=== PATIENT | male | born 1950 | race Caucasian/White ===

== ENCOUNTER 2017-08-22 12:15 | Emergency (ER) | payer MEDICARE, OTHER ==
[~2017-08-22] VITALS: Ht 167.6 cm; Wt 76.2 kg
[~2017-08-22 12:15] MED LIST: ASPI-496 PO; ASPI-621 PO; ATOR-2 PO; CARV3.1212 PO; CLOP75TA52 PO; DIAZ10TA4 PO; HYDR-3241 PO; HYDR1TAB12 PO; INSU100I18 SQ; INSU100V13 SQ; INSU100V8 SQ; KETO30VI27 IVPush; LISI-167 PO; METF500T PO; METO25TA35 PO; MORP2SYR3 IVPush; NITR0.4T SL; NITR0.4T28 SL; ONDA4SOL2 IVPush; TEMA15CA6 PO; TICA90TA PO
[2017-08-22 12:58] LABS: BASOPHILS # (AUTO) 0.06 x10^3/uL (0-0.1); BASOPHILS % (AUTO) 1 % (0-1); EOSINOPHILS # (AUTO) 0.15 x10^3/uL (0-0.4); EOSINOPHILS % (AUTO) 2 % (1-7); LYMPHOCYTES # (AUTO) 1.43 x10^3/uL (1-3.4); LYMPHOCYTES % (AUTO) 14 % (22-44); MD NO; MEAN CORPUSCULAR HEMOGLOBIN 32.3 pg (27.5-34.5); MEAN CORPUSCULAR HGB CONC 33.2 g/dL (33.2-36.2); MEAN CORPUSCULAR VOLUME 97.2 fL (81-97); MEAN PLATELET VOLUME 8.4 fL (7.4-10.4); MONOCYTES # (AUTO) 0.84 x10^3/uL (0.2-0.8); MONOCYTES % (AUTO) 8 % (2-9); NEUTROPHILS # (AUTO) 7.67 x10^3/uL (1.8-6.8); NEUTROPHILS % (AUTO) 76 % (42-75); PLATELET COUNT 331 x10^3/uL (130-400); RED BLOOD COUNT 2.86 x10^6/uL (4.38-5.82); RED CELL DISTRIBUTION WIDTH 14.4 % (9.4-14.8)
[2017-08-22 13:04] LABS: ALBUMIN 2.6 g/dL (3.4-5.0); ANION GAP 6 mmol/L (5-15); CHLORIDE 107 mmol/L (98-107); CREATININE 1.19 mg/dL (0.7-1.3)
[2017-08-22] MEDS ORDERED: HYDROcodone/APAP 10/325 MG TABLET PO ONE (13:30)
[2017-08-22] MEDS ORDERED: ALBUTEROL/IPRATROPIUM 2.5MG/0.5MG, 3 ML NPPB ONE (14:00)
[2017-08-22 14:09] LABS: CULTURE INDICATED? YES; MICROSCOPIC INDICATED
[2017-08-22] MEDS ORDERED: ALBUTEROL/IPRATROPIUM 2.5MG/0.5MG, 3 ML ONE (14:26)
[2017-08-22 15:28] VITALS: BP 120/70
== END 2017-08-22 15:32 | disposition home or self-care (01) ==
LOC: ED 15:26
DX: N49.2 Inflammatory disorders of scrotum (principal); N43.3 Hydrocele, unspecified; E11.9 Type 2 diabetes mellitus without complications; I25.2 Old myocardial infarction; Z87.891 Personal history of nicotine dependence
CPT/HCPCS: 36415; 71045; 76870; 80048; 81001; 82040; 85025; 87086; 93975; 94640; 99285; J7512; J7620

== ENCOUNTER 2018-03-09 09:06 | Inpatient (IN) | payer MEDICARE, OTHER ==
[~2018-03-09] VITALS: Ht 167.6 cm; Wt 71.5 kg
[2018-03-09] MEDS ORDERED: FUROSEMIDE 40 MG/4 ML ONE (09:25)
[2018-03-09] MEDS ORDERED: SODIUM CHLORIDE FLUSH 10ML SYR IVF ONE (09:30)
[2018-03-09] MEDS ORDERED: PLEASE ENTER HEIGHT AND WEIGHT MC SCH (09:30)
[2018-03-09] MEDS ORDERED: FUROSEMIDE 40 MG/4 ML IV ONE (09:30)
[2018-03-09 09:44] LABS: D-DIMER 1.19 ug/mlFEU (0.00-0.52)
[2018-03-09] MEDS ORDERED: DILTIAZEM 5 MG/ML, 5ML IVPush ONE (10:00)
[2018-03-09] MEDS ORDERED: OMNIPAQUE 350 MG/ML, 100ML BOTTLE ONE (11:04)
[2018-03-09] MEDS: DILTIAZEM 125 MG in SODIUM CHLORIDE 0.9% 100 ML IV SCH ×2 (11:14→19:28)
[2018-03-09] MEDS ORDERED: INSU100V8 SQ (11:22)
[2018-03-09] MEDS ORDERED: ACETAMINOPHEN 325 MG TABLET PO PRN (12:30)
[2018-03-09] MEDS ORDERED: NITROGLYCERIN 0.4 MG/SPRAY SL PRN (12:30)
[2018-03-09] MEDS ORDERED: ONDANSETRON ODT 4 MG PO PRN (12:30)
[2018-03-09] MEDS ORDERED: hydrALAzine 20 MG/ML, 1ML IVPush PRN (12:30)
[2018-03-09] MEDS ORDERED: ENALAPRILAT 1.25 MG/ML, 2ML IVPush PRN (12:30)
[2018-03-09] MEDS ORDERED: MORPHINE SULFATE 4 MG/ML, 1ML IVPush PRN (12:30)
[2018-03-09] MEDS ORDERED: LABETALOL 5MG/ML, 20ML IVPush PRN (12:30)
[2018-03-09] MEDS ORDERED: BISACODYL 10 MG SUPP PR PRN (12:30)
[2018-03-09] MEDS ORDERED: NITROGLYCERIN 0.4 MG BOTTLE (25 TABS) SL PRN (12:30)
[2018-03-09] MEDS ORDERED: ONDANSETRON 2MG/ML, 2ML IVPush PRN (12:30)
[2018-03-09 12:36] LABS: MICROSCOPIC INDICATED
[2018-03-09 12:38] LABS: CULTURE INDICATED? NO
[2018-03-09 12:54] LABS: BASOPHILS # (AUTO) 0.04 x10^3/uL (0-0.1); BASOPHILS % (AUTO) 0 % (0-1); EOSINOPHILS # (AUTO) 0.09 x10^3/uL (0-0.4); EOSINOPHILS % (AUTO) 1 % (1-7); LYMPHOCYTES # (AUTO) 0.95 x10^3/uL (1-3.4); LYMPHOCYTES % (AUTO) 9 % (22-44); MD NO; MEAN CORPUSCULAR HEMOGLOBIN 32.4 pg (27.5-34.5); MEAN CORPUSCULAR HGB CONC 33.4 g/dL (33.2-36.2); MEAN CORPUSCULAR VOLUME 96.9 fL (81-97); MEAN PLATELET VOLUME 11.1 fL (7.4-10.4); MONOCYTES % (AUTO) 5 % (2-9); NEUTROPHILS # (AUTO) 8.62 x10^3/uL (1.8-6.8); NEUTROPHILS % (AUTO) 84 % (42-75); PLATELET COUNT 159 x10^3/uL (130-400); RED BLOOD COUNT 4.73 x10^6/uL (4.38-5.82); RED CELL DISTRIBUTION WIDTH 13.7 % (9.4-14.8)
[2018-03-09 12:57] LABS: INTERNATIONAL NORMALIZED RATIO 1.23 (0.93-1.1); PROTHROMBIN TIME 12.7 Seconds (9.6-11.5)
[2018-03-09] MEDS: INSULIN GLARGINE 100 UNITS/ML, PEN SQ-INSULIN SCH ×2 (13:00→20:30)
[2018-03-09] MEDS ORDERED: DIAZEPAM 10 MG TABLET PO PRN (13:00)
[2018-03-09 13:05] LABS: ANION GAP 10 mmol/L (5-15); CALCIUM 8.6 mg/dL (8.5-10.1); CHLORIDE 111 mmol/L (98-107)
[2018-03-09 13:17] LABS: CREATININE 1.44 mg/dL (0.7-1.3)
[2018-03-09 13:23] LABS: HEMOGLOBIN A1C 7.1 % (4.2-6.3)
[2018-03-09 14:02] VITALS: BP 90/69
[2018-03-09] MEDS: ENOXAPARIN 80 MG/0.8 ML SQ SCH (17:28)
[2018-03-09 18:33] VITALS: BP 100/65
[2018-03-09 19:27] LABS: TROPONIN I 0.237 ng/mL (0.000-0.045)
[2018-03-09] MEDS: ATORVASTATIN 80 MG TABLET PO SCH (20:24)
[2018-03-09] MEDS: CARVEDILOL 6.25 MG TABLET PO SCH (20:24)
[2018-03-09 22:49] VITALS: BP 92/56
[2018-03-09] MEDS ORDERED: DIGOXIN 0.25 MG/ML, 2ML IVPush STA (23:03)
[2018-03-10 01:37] VITALS: BP 101/68
[2018-03-10] MEDS: DILTIAZEM 125 MG in SODIUM CHLORIDE 0.9% 100 ML IV SCH ×3 (03:58→21:04)
[2018-03-10 04:00] VITALS: BP 98/54
[2018-03-10 04:50] LABS: BASOPHILS # (AUTO) 0.11 x10^3/uL (0-0.1); BASOPHILS % (AUTO) 2 % (0-1); EOSINOPHILS # (AUTO) 0.34 x10^3/uL (0-0.4); EOSINOPHILS % (AUTO) 6 % (1-7); LYMPHOCYTES # (AUTO) 2.46 x10^3/uL (1-3.4); LYMPHOCYTES % (AUTO) 40 % (22-44); MD NO; MEAN CORPUSCULAR HEMOGLOBIN 32.5 pg (27.5-34.5); MEAN CORPUSCULAR HGB CONC 33.8 g/dL (33.2-36.2); MEAN CORPUSCULAR VOLUME 95.9 fL (81-97); MEAN PLATELET VOLUME 11.3 fL (7.4-10.4); MONOCYTES # (AUTO) 0.47 x10^3/uL (0.2-0.8); MONOCYTES % (AUTO) 8 % (2-9); NEUTROPHILS # (AUTO) 2.78 x10^3/uL (1.8-6.8); NEUTROPHILS % (AUTO) 45 % (42-75); PLATELET COUNT 142 x10^3/uL (130-400); RED BLOOD COUNT 4.12 x10^6/uL (4.38-5.82); RED CELL DISTRIBUTION WIDTH 14.1 % (9.4-14.8)
[2018-03-10 04:57] LABS: ANION GAP 8 mmol/L (5-15); CALCIUM 8.2 mg/dL (8.5-10.1); CHLORIDE 109 mmol/L (98-107); CREATININE 1.51 mg/dL (0.7-1.3)
[2018-03-10 05:00] LABS: TROPONIN I 0.216 ng/mL (0.000-0.045)
[2018-03-10] MEDS: ENOXAPARIN 80 MG/0.8 ML SQ SCH ×2 (06:00→17:28)
[2018-03-10 08:05] VITALS: BP 102/69
[2018-03-10] MEDS: ASPIRIN 81 MG TABLET EC PO SCH (08:22)
[2018-03-10] MEDS: FUROSEMIDE 20 MG/2 ML IV SCH ×2 (08:22→17:28)
[2018-03-10] MEDS: CARVEDILOL 6.25 MG TABLET PO SCH ×2 (08:22→19:37)
[2018-03-10] MEDS: CLOPIDOGREL 75 MG TABLET PO SCH (08:22)
[2018-03-10] MEDS ORDERED: DIGOXIN 0.25 MG/ML, 2ML IVPush ONE (08:30)
[2018-03-10 14:25] VITALS: BP 101/68
[2018-03-10] MEDS ORDERED: HEPARIN 5,000 UNITS/ML, 1ML IV PRN (18:00)
[2018-03-10] MEDS ORDERED: HEPARIN 5,000 UNITS/ML, 1ML IV ONE (18:00)
[2018-03-10] MEDS ORDERED: HEPARIN 25,000 UNITS/500ML PMX 500 ML IV PRN (18:00)
[2018-03-10 19:00] VITALS: BP 99/65
[2018-03-10 19:35] VITALS: BP 103/64
[2018-03-10] MEDS: ATORVASTATIN 80 MG TABLET PO SCH (19:37)
[2018-03-10] MEDS: INSULIN GLARGINE 100 UNITS/ML, PEN SQ-INSULIN SCH (19:38)
[2018-03-11] VITALS (8 sets, daily range): BP systolic 92–112; BP diastolic 61–74
[2018-03-11] MEDS ORDERED: HEPARIN 25,000 UNITS/500ML PMX 500 ML IV PRN (05:00)
[2018-03-11] MEDS ORDERED: HEPARIN 5,000 UNITS/ML, 1ML IVPush ONE (05:00)
[2018-03-11] MEDS ORDERED: HEPARIN 5,000 UNITS/ML, 1ML IV PRN (05:00)
[2018-03-11] MEDS: DILTIAZEM 125 MG in SODIUM CHLORIDE 0.9% 100 ML IV SCH (05:14)
[2018-03-11 05:24] LABS: BASOPHILS # (AUTO) 0.06 x10^3/uL (0-0.1); BASOPHILS % (AUTO) 1 % (0-1); EOSINOPHILS # (AUTO) 0.44 x10^3/uL (0-0.4); EOSINOPHILS % (AUTO) 6 % (1-7); LYMPHOCYTES # (AUTO) 1.42 x10^3/uL (1-3.4); LYMPHOCYTES % (AUTO) 18 % (22-44); MD NO; MEAN CORPUSCULAR HGB CONC 33.5 g/dL (33.2-36.2); MEAN CORPUSCULAR VOLUME 95.4 fL (81-97); MEAN PLATELET VOLUME 10.5 fL (7.4-10.4); MONOCYTES # (AUTO) 0.71 x10^3/uL (0.2-0.8); MONOCYTES % (AUTO) 9 % (2-9); NEUTROPHILS # (AUTO) 5.26 x10^3/uL (1.8-6.8); NEUTROPHILS % (AUTO) 67 % (42-75); PLATELET COUNT 141 x10^3/uL (130-400); RED BLOOD COUNT 4.24 x10^6/uL (4.38-5.82); RED CELL DISTRIBUTION WIDTH 13.5 % (9.4-14.8)
[2018-03-11 05:28] LABS: ALBUMIN 3.2 g/dL (3.4-5.0); ANION GAP 7 mmol/L (5-15); CALCIUM 8.1 mg/dL (8.5-10.1); CHLORIDE 106 mmol/L (98-107)
[2018-03-11] MEDS: APIXABAN 5 MG TABLET PO SCH ×2 (09:58→20:17)
[2018-03-11] MEDS: CLOPIDOGREL 75 MG TABLET PO SCH (09:58)
[2018-03-11] MEDS: ASPIRIN 81 MG TABLET EC PO SCH (09:58)
[2018-03-11] MEDS: FUROSEMIDE 20 MG/2 ML IV SCH ×2 (09:58→16:48)
[2018-03-11] MEDS: DIGOXIN 0.25 MG/ML, 2ML IVPush SCH (09:58)
[2018-03-11 11:20] LABS: ANION GAP 8 mmol/L (5-15); CALCIUM 8.5 mg/dL (8.5-10.1); CHLORIDE 105 mmol/L (98-107); CREATININE 1.46 mg/dL (0.7-1.3)
[2018-03-11] MEDS: CARVEDILOL 6.25 MG TABLET PO SCH ×3 (11:25→20:17)
[2018-03-11] MEDS: ATORVASTATIN 80 MG TABLET PO SCH (20:17)
[2018-03-11] MEDS: INSULIN GLARGINE 100 UNITS/ML, PEN SQ-INSULIN SCH (20:18)
[2018-03-12 02:00] VITALS: BP 129/67
[2018-03-12 05:24] LABS: ANION GAP 4 mmol/L (5-15); CALCIUM 8.1 mg/dL (8.5-10.1); CHLORIDE 106 mmol/L (98-107); CREATININE 1.15 mg/dL (0.7-1.3)
[2018-03-12 06:42] VITALS: BP 127/79
[2018-03-12 07:43] VITALS: BP 129/76
[2018-03-12] MEDS: DIGOXIN 0.25 MG/ML, 2ML IVPush SCH (07:44)
[2018-03-12] MEDS: CLOPIDOGREL 75 MG TABLET PO SCH (07:44)
[2018-03-12] MEDS: APIXABAN 5 MG TABLET PO SCH ×2 (07:44→19:58)
[2018-03-12] MEDS: FUROSEMIDE 20 MG/2 ML IV SCH ×2 (07:44→17:10)
[2018-03-12] MEDS: CARVEDILOL 6.25 MG TABLET PO SCH ×2 (07:45→19:58)
[2018-03-12] MEDS: ASPIRIN 81 MG TABLET EC PO SCH (07:45)
[2018-03-12 09:44] VITALS: BP 133/79
[2018-03-12] MEDS: LISINOPRIL 5 MG TABLET PO SCH (09:56)
[2018-03-12] MEDS: AMIODARONE 200 MG TABLET PO SCH ×2 (09:57→19:58)
[2018-03-12] MEDS ORDERED: SODIUM CHLORIDE NASAL SPRAY 45ML BOTTLE NAS PRN (11:30)
[2018-03-12 12:59] VITALS: BP 106/69
[2018-03-12 19:55] VITALS: BP 115/74
[2018-03-12] MEDS: ATORVASTATIN 80 MG TABLET PO SCH (19:58)
[2018-03-12] MEDS: INSULIN GLARGINE 100 UNITS/ML, PEN SQ-INSULIN SCH (19:59)
[2018-03-13 02:04] VITALS: BP 129/69
[2018-03-13 05:12] LABS: ANION GAP 6 mmol/L (5-15); CALCIUM 8.5 mg/dL (8.5-10.1); CHLORIDE 104 mmol/L (98-107)
[2018-03-13 05:26] LABS: CREATININE 1.14 mg/dL (0.7-1.3)
[2018-03-13 07:25] VITALS: BP 115/73
[2018-03-13] MEDS: FUROSEMIDE 20 MG/2 ML IV SCH (07:53)
[2018-03-13] MEDS: LISINOPRIL 5 MG TABLET PO SCH (07:54)
[2018-03-13] MEDS: ASPIRIN 81 MG TABLET EC PO SCH (07:54)
[2018-03-13] MEDS: AMIODARONE 200 MG TABLET PO SCH ×2 (07:54→19:56)
[2018-03-13] MEDS: CARVEDILOL 6.25 MG TABLET PO SCH ×2 (07:54→19:56)
[2018-03-13] MEDS: APIXABAN 5 MG TABLET PO SCH ×2 (07:54→19:56)
[2018-03-13] MEDS: CLOPIDOGREL 75 MG TABLET PO SCH (07:55)
[2018-03-13] MEDS: POTASSIUM CHLORIDE 20 MEQ TAB.ER.PRT PO SCH (08:53)
[2018-03-13 12:01] VITALS: BP 127/79
[2018-03-13] MEDS ORDERED: CARV6.2512 PO (12:05)
[2018-03-13] MEDS ORDERED: ASPI-496 PO (12:05)
[2018-03-13] MEDS ORDERED: POTA20TA6 PO (12:05)
[2018-03-13] MEDS ORDERED: APIX5TAB PO (12:05)
[2018-03-13] MEDS ORDERED: CLOP75TA52 PO (12:05)
[2018-03-13] MEDS ORDERED: FURO40TA6 PO (12:05)
[2018-03-13] MEDS ORDERED: LISI5TAB7 PO (12:05)
[2018-03-13] MEDS ORDERED: ATOR-2 PO (12:05)
[2018-03-13] MEDS ORDERED: AMIO200T42 PO (12:05)
[2018-03-13] MEDS ORDERED: NITR0.4T SL (12:05)
[2018-03-13] MEDS: FUROSEMIDE 40 MG TABLET PO SCH (17:38)
[2018-03-13] MEDS: ATORVASTATIN 80 MG TABLET PO SCH (19:55)
[2018-03-13 20:00] VITALS: BP 137/84
[2018-03-13] MEDS: INSULIN GLARGINE 100 UNITS/ML, PEN SQ-INSULIN SCH (20:01)
[2018-03-14 02:00] VITALS: BP 120/77
[2018-03-14 07:17] VITALS: BP 116/68
[2018-03-14] MEDS: CLOPIDOGREL 75 MG TABLET PO SCH (08:11)
[2018-03-14] MEDS: ASPIRIN 81 MG TABLET EC PO SCH (08:11)
[2018-03-14] MEDS: CARVEDILOL 6.25 MG TABLET PO SCH (08:11)
[2018-03-14] MEDS: FUROSEMIDE 40 MG TABLET PO SCH (08:11)
[2018-03-14] MEDS: POTASSIUM CHLORIDE 20 MEQ TAB.ER.PRT PO SCH (08:12)
[2018-03-14] MEDS: APIXABAN 5 MG TABLET PO SCH (08:12)
[2018-03-14] MEDS: AMIODARONE 200 MG TABLET PO SCH (08:12)
[2018-03-14] MEDS: LISINOPRIL 5 MG TABLET PO SCH (08:12)
== END 2018-03-14 16:21 | disposition home or self-care (01) | DRG 291 ==
LOC: ED 12:08 → EDIP 12:09 → 5SO 14:00
PROVIDERS: ADMIT Internal Medicine; ATTEND Internal Medicine
DX: I11.0 Hypertensive heart disease with heart failure (principal); J96.01 Acute respiratory failure with hypoxia; D68.69 Other thrombophilia; I24.8 Other forms of acute ischemic heart disease; I48.0 Paroxysmal atrial fibrillation; I50.23 Acute on chronic systolic (congestive) heart failure; E11.9 Type 2 diabetes mellitus without complications; I25.5 Ischemic cardiomyopathy; E87.6 Hypokalemia; F17.210 Nicotine dependence, cigarettes, uncomplicated; I25.10 Atherosclerotic heart disease of native coronary artery without angina pectoris; I25.2 Old myocardial infarction; J44.9 Chronic obstructive pulmonary disease, unspecified; Z66 Do not resuscitate; N28.9 Disorder of kidney and ureter, unspecified; M19.90 Unspecified osteoarthritis, unspecified site; Z88.1 Allergy status to other antibiotic agents; Z79.4 Long term (current) use of insulin; Z79.01 Long term (current) use of anticoagulants; Z95.0 Presence of cardiac pacemaker; Z95.5 Presence of coronary angioplasty implant and graft
CPT/HCPCS: 36415; 36600; 71045; 71046; 71275; 76770; 80047; 80048; 80162; 81001; 82040; 82962; 83036; 83605; 83615; 83735; 83880; 84132; 84145; 84443; 84484; 85025; 85379; 85520; 85610; 85730; 87040; 93005; 93306; 96374; 96375; 99291; G0378; J1644; J1650; J1940; Q9967; J1160; J1815

== ENCOUNTER 2018-10-09 15:08 | Emergency (ER) | payer MEDICARE, OTHER ==
[~2018-10-09] VITALS: Ht 167.6 cm; Wt 70.0 kg
[~2018-10-09 15:08] MED LIST changes: +AMIO200T42 PO; +APIX5TAB PO; -ASPI-621 PO; +ASPI81TA45 PO; +CARV6.2512 PO; +FURO40TA6 PO; -HYDR1TAB12 PO; +HYDR1TAB13 PO; +LISI5TAB7 PO; +POTA20TA6 PO
--- NOTE | 2018-10-09 15:29 | NUR ---
FIRST CONTACT WITH PT. Pt sent to ED by Dr. Valenzuela's office for "arrythmia and to be shocked back into rhythm." Pt was 82% on room air at doctor's office. Pt at 87% on room air in ED room. Placed pt on 3L NC to maintain aboce 90%. Pt states, "for two weeks I have felt short of breath. When I stand up or sit up really straight it is easier to breath." X-ray at bedside now.
[2018-10-09] MEDS ORDERED: SODIUM CHLORIDE FLUSH 10ML SYR IVF ONE (15:30)
[2018-10-09 15:46] LABS: INTERNATIONAL NORMALIZED RATIO 1.16 (0.93-1.1); PROTHROMBIN TIME 12.1 Seconds (9.6-11.5)
[2018-10-09 15:47] LABS: ALANINE AMINOTRANSFERASE 36 U/L (12-78); ALBUMIN 3.9 g/dL (3.4-5.0); ANION GAP 5 mmol/L (5-15); CALCIUM 8.7 mg/dL (8.5-10.1); CHLORIDE 114 mmol/L (98-107); CREATININE 1.87 mg/dL (0.7-1.3)
[2018-10-09 15:52] LABS: ALKALINE PHOSPHATASE 95 U/L (45-117); BILIRUBIN,TOTAL 0.7 mg/dL (0.2-1.0); TOTAL PROTEIN 7.2 g/dL (6.4-8.2); TROPONIN I 0.038 ng/mL (0.000-0.045)
[2018-10-09 16:38] LABS: BASOPHILS # (AUTO) 0.08 x10^3/uL (0-0.1); BASOPHILS % (AUTO) 1 % (0-1); EOSINOPHILS # (AUTO) 0.14 x10^3/uL (0-0.4); EOSINOPHILS % (AUTO) 2 % (1-7); LYMPHOCYTES # (AUTO) 1.37 x10^3/uL (1-3.4); LYMPHOCYTES % (AUTO) 18 % (22-44); MD NO; MEAN CORPUSCULAR HEMOGLOBIN 32.6 pg (27.5-34.5); MEAN CORPUSCULAR HGB CONC 33.4 g/dL (33.2-36.2); MEAN CORPUSCULAR VOLUME 97.6 fL (81-97); MEAN PLATELET VOLUME 11.4 fL (7.4-10.4); MONOCYTES # (AUTO) 0.46 x10^3/uL (0.2-0.8); MONOCYTES % (AUTO) 6 % (2-9); NEUTROPHILS # (AUTO) 5.62 x10^3/uL (1.8-6.8); NEUTROPHILS % (AUTO) 73 % (42-75); PLATELET COUNT 173 x10^3/uL (130-400); RED BLOOD COUNT 5.11 x10^6/uL (4.38-5.82); RED CELL DISTRIBUTION WIDTH 14.6 % (9.4-14.8)
[2018-10-09] MEDS ORDERED: FUROSEMIDE 20 MG/2 ML ONE (17:23)
--- NOTE | 2018-10-09 17:24 | NUR ---
Provided report to ASCENCION Estrada. All questions answered. ASCENCION Estrada to assume care of pt.
[2018-10-09 17:33] VITALS: BP 110/84
--- NOTE | 2018-10-09 17:40 | NUR ---
LASIX ORDER CLARIFIED WITH . LASIX TO BE GIVEN NOW. MD ASKED ORDER TO BE CHANGED.
[2018-10-09] MEDS ORDERED: FUROSEMIDE 20 MG/2 ML IV SCH (18:00)
--- NOTE | 2018-10-09 18:33 | NUR ---
Patient/Caregiver given discharge instructions and they have confirmed that they understand the instructions. Patient ambulatory with steady gait. PT CHOOSING AMA AT THIS TIME REFUSING ADMISSION HE REPORTS FEELING FINE.
--- NOTE | 2018-10-09 18:43 | NUR ---
Patient/Caregiver given discharge instructions and they have confirmed that they understand the instructions. Patient ambulatory with steady gait.
[2018-10-10] MEDS ORDERED: FUROSEMIDE 20 MG/2 ML IV SCH (09:00)
== END 2018-10-09 18:47 | disposition left against medical advice (07) ==
LOC: ED 18:00
DX: I50.9 Heart failure, unspecified (principal); I11.0 Hypertensive heart disease with heart failure; R06.00 Dyspnea, unspecified; E11.9 Type 2 diabetes mellitus without complications; I25.2 Old myocardial infarction; M19.90 Unspecified osteoarthritis, unspecified site; I48.91 Unspecified atrial fibrillation; Z95.0 Presence of cardiac pacemaker; R68.89 Other general symptoms and signs
CPT/HCPCS: 36415; 71045; 80053; 83880; 84484; 85025; 85610; 85730; 93005; 96374; 99284; J1940